=== PATIENT | female | born 1945 | race African-American/Black ===

== ENCOUNTER 2021-05-20 15:09 | Inpatient (IN) | payer OTHER ==
[2021-05-20] MEDS ORDERED: DIPHTH,PERTUSS(ACELL),TET 0.5 ML DISP.SYRIN IM ONE ×2 (16:48→17:42)
[2021-05-20 17:43] LABS: HEMATOCRIT 41.5 % (32.4-45.2); MCH 30.9 pg (25.7-33.7); MCHC 33.7 g/dl (32.0-36.0); MEAN CELL VOLUME 91.8 fl (80-96); MEAN PLT VOLUME 9.5 fl (7.5-11.1); PLATELET COUNT 187 10^3/uL (134-434); RBC 4.52 M/mm3 (3.60-5.2); RDW 13.9 % (11.6-15.6); WHITE BLOOD COUNT 6.8 K/mm3 (4.0-10.0)
[2021-05-20 17:48] LABS: EPI CELLS 4 /uL (0-25.1); HYALINE CASTS 0 /uL (0-3.1); PH,URINE 5.5 (5.0-8.0); URINE APPEARANCE CLEAR; URINE BACTERIA 87 /uL (0-1359); URINE BILIRUBIN NEGATIVE (NEGATIVE); URINE COLOR YELLOW; URINE GLUCOSE (UA) NEGATIVE (NEGATIVE); URINE KETONE NEGATIVE (NEGATIVE); URINE LEUK ESTERASE NEGATIVE (NEGATIVE); URINE NITRITE NEGATIVE (NEGATIVE); URINE PROTEIN NEGATIVE (NEGATIVE); URINE RBC 12 /uL (0-23.9); URINE WBC 3 /uL (0-25.8)
[2021-05-20 17:50] LABS: INR 0.99 (0.83-1.09); PROTHROMBIN TIME (PATIENT) 12.2 SEC (9.7-13.0)
[2021-05-20 17:52] LABS: ACTIVATED PTT 35.8 SECONDS (25.2-36.5)
[2021-05-20 18:02] LABS: CHLORIDE 106 mmol/L (98-107); SODIUM 140 mmol/L (136-145)
[2021-05-20 18:06] LABS: ALBUMIN 3.6 g/dl (3.4-5.0); ANION GAP 5 MMOL/L (8-16); BLOOD UREA NITROGEN 17.1 mg/dL (7-18); CALCIUM 9.2 mg/dL (8.5-10.1); CO2 29 mmol/L (21-32); GLUCOSE,RANDOM 79 mg/dL (74-106)
[2021-05-20 18:09] LABS: SGOT/AST 23 U/L (15-37); SGPT/ALT 19 U/L (13-61)
[2021-05-20 18:11] LABS: BILIRUBIN,TOTAL 0.6 mg/dL (0.2-1); TOT PROT 8.1 g/dl (6.4-8.2)
[2021-05-20 18:12] LABS: ALK PHOS 75 U/L (45-117)
[2021-05-20] MEDS ORDERED: BACITRACIN 0.9 GM PACKET ONE (18:55)
[2021-05-20] MEDS ORDERED: ACETAMINOPHEN 1000 MG/100 ML VIAL (NON FORMULARY) IVPB PRN (20:40)
[2021-05-21] MEDS ORDERED: APIXABAN 5 MG TABLET ONE (01:24)
[2021-05-21] MEDS: APIXABAN 5 MG TABLET PO SCH ×2 (01:29→09:20)
[2021-05-21 07:22] LABS: BLOOD UREA NITROGEN 15.2 mg/dL (7-18)
[2021-05-21 07:25] LABS: CALCIUM 8.6 mg/dL (8.5-10.1); CREATININE 0.9 mg/dL (0.55-1.3)
[2021-05-21 07:26] LABS: HEMATOCRIT 39.5 % (32.4-45.2); HEMOGLOBIN 13.3 GM/dL (10.7-15.3); MAGNESIUM 2.2 mg/dL (1.8-2.4); MCH 31.1 pg (25.7-33.7); MCHC 33.7 g/dl (32.0-36.0); MEAN CELL VOLUME 92.4 fl (80-96); MEAN PLT VOLUME 10.1 fl (7.5-11.1); PHOSPHOROUS 3.6 mg/dL (2.5-4.9); PLATELET COUNT 169 10^3/uL (134-434); RBC 4.28 M/mm3 (3.60-5.2); RDW 13.9 % (11.6-15.6); WHITE BLOOD COUNT 5.8 K/mm3 (4.0-10.0)
[2021-05-21 07:35] LABS: CHOLESTEROL 158 mg/dL (50-200); TRIGLYCERIDES 45 mg/dL (0-150)
[2021-05-21 07:36] LABS: LDL CHOLESTEROL (ONLY SJRH) 75 mg/dL (5-100)
[2021-05-21 07:38] LABS: HDL CHOLESTEROL 69 mg/dL (40-60)
[2021-05-21] MEDS ORDERED: APIXABAN 2.5 MG TABLET ONE (09:17)
[2021-05-21] MEDS ORDERED: ACETAMINOPHEN INJECTION 100 ML IVPB ONE (10:43)
[2021-05-21] MEDS: BACITRACIN/POLYMYXIN B SULFATE 15 GM TUBE TP SCH (11:30)
[2021-05-21] MEDS ORDERED: oxyCODONE HCL 5 MG TABLET PO PRN (16:31)
[2021-05-21] MEDS ORDERED: ATORVASTATIN CA 20 MG TABLET (FP) PO SCH (22:00)
[2021-05-21] MEDS ORDERED: ATORVASTATIN CA 10 MG TABLET (FP) PO SCH (22:00)
[2021-05-21 23:30] VITALS: BMI 32.8
[2021-05-22 07:17] LABS: BASO % 0.4 % (0-2.0); EOS % 0.8 % (0-4.5); HEMATOCRIT 39.6 % (32.4-45.2); HEMOGLOBIN 13.4 GM/dL (10.7-15.3); LYMPH % 21.2 % (8-40); MCH 31.2 pg (25.7-33.7); MCHC 33.8 g/dl (32.0-36.0); MEAN CELL VOLUME 92.5 fl (80-96); MEAN PLT VOLUME 9.3 fl (7.5-11.1); NEUT % 68.6 % (42.8-82.8); PLATELET COUNT 178 10^3/uL (134-434); RBC 4.28 M/mm3 (3.60-5.2); RDW 13.9 % (11.6-15.6); WHITE BLOOD COUNT 5.6 K/mm3 (4.0-10.0)
[2021-05-22 07:37] LABS: CALCIUM 8.6 mg/dL (8.5-10.1)
[2021-05-22 07:38] LABS: BLOOD UREA NITROGEN 17.8 mg/dL (7-18); MAGNESIUM 2.2 mg/dL (1.8-2.4)
[2021-05-22 07:41] LABS: CREATININE 0.9 mg/dL (0.55-1.3); PHOSPHOROUS 3.2 mg/dL (2.5-4.9)
[2021-05-22 11:16] VITALS: TEMP 97
[2021-05-22 13:59] VITALS: BP 143/75; PULSE 88
[2021-05-22] MEDS: BACITRACIN/POLYMYXIN B SULFATE 15 GM TUBE TP SCH (17:36)
== END 2021-05-22 19:30 | disposition home or self-care (01) | DRG 563 ==
LOC: JER 15:09 → JERBED 17:04 → OBSVTOIN 05-21 12:42 → J4W 05-21 21:37
PROVIDERS: ADMIT Internal Medicine; ATTEND Internal Medicine
DX: S82.142A Displaced bicondylar fracture of left tibia, initial encounter for closed fracture (principal); S83.412A Sprain of medial collateral ligament of left knee, initial encounter; S80.01XA Contusion of right knee, initial encounter; S00.81XA Abrasion of other part of head, initial encounter; I10 Essential (primary) hypertension; Z86.718 Personal history of other venous thrombosis and embolism; Z79.01 Long term (current) use of anticoagulants; Z86.711 Personal history of pulmonary embolism; R26.81 Unsteadiness on feet; E66.9 Obesity, unspecified; Z68.32 Body mass index [BMI] 32.0-32.9, adult; E78.5 Hyperlipidemia, unspecified; W19.XXXA Unspecified fall, initial encounter; Y93.89 Activity, other specified; Y99.8 Other external cause status; Y92.480 Sidewalk as the place of occurrence of the external cause
CPT/HCPCS: 36415; 70450-TC; 70486-TC; 71045-TC-FY; 72125-TC; 73562-TC-LT-FY; 73562-TC-RT-FY; 80048; 80053; 80061; 80307; 81003; 82550; 82553; 82962; 83735; 84100; 84443; 84484; 85025; 85027; 85610; 85730; 86850; 86900; 86901; 87040; 87086; 90715; 93005; 93010; 93970-TC; 99285-25; C9803; G0378; J0131; U0003; U0005